=== PATIENT | female | born 1950 | race Caucasian/White ===

== ENCOUNTER → 2025-05-01 23:59 | Outpatient (BNV) | payer MEDICARE, SELFPAY | PROVIDERS: Visit Provider Internal Medicine Cardiovascular Disease | DX: I21.4 Non-ST elevation (NSTEMI) myocardial infarction (principal) | CPT/HCPCS: 92941; 92978; 93458; 99152 ==

== ENCOUNTER 2025-05-19 12:53 | Outpatient (AMB) | payer MEDICARE, SELFPAY ==
--- NOTE | 2025-05-19 13:05 | A.OFFVIS_ITS ---
Vital Signs 05/19/25 13:11 Height 5 ft 4 in Weight 138 lb 14.259 oz BMI 23.8 BP 124/60 Blood Pressure Location Rt brachial Position Sitting Pulse 61 Pulse Source Monitor Intake Visit Reasons: 2 week f/up cath Intake Note: 2wk f/up cath Radio Division Captain Required: No Accompanied by: Self / Same As Patient Allergies Penicillins Allergy (Severe, Verified 05/19/25 13:13) Rash Anesticia Allergy (Mild, Uncoded 05/19/25 13:13) Confusion Medication List - Last Reconciled 05/19/25 by Joel Moser MD aspirin (Adult Low Dose Aspirin) 81 mg PO DAILY atorvastatin (Lipitor) 80 mg PO DAILY carvedilol 3.125 mg PO BID cholecalciferol (vitamin D3) 50 mcg PO DAILY clopidogrel (Plavix) 75 mg PO DAILY meclizine 25 mg PO DAILY PRN nitroglycerin 0.4 mg sublingual Q5M PRN omeprazole 40 mg PO DAILY oxybutynin chloride ER 15 mg PO DAILY sucralfate 1 g PO QIDACHS HPI Comments Details: Pleasant 74-year-old lady from the [facility] who presented to [facility] after initial presentation add dora Marinelli with inferior ST-elevation TN. She was given thrombolytics and was transferred to [facility] for cardiac catheterization. 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 She had mild disease in the other vessels. She has been doing well since then. She has significant indigestion and GERD symptoms which go back many years. A presentation with TN was also like her GERD symptoms but she also had significant shortness of breath. Since PCI she has had 2 episodes of GERD which were short and were not accompanied with dyspnea. She is taking aspirin and Plavix. She is taking omeprazole and occasionally sucralfate. She has not started cardiac rehabilitation yet. She was taking rosuvastatin 10 mg and her LDL cholesterol was 94. [facility] Surgical History (Updated 05/19/25 @ 13:17 by Nata Stout CMA) Hx of cardiac cath Family History (Updated 05/19/25 @ 13:18 by Nata Stout CMA) Mother No problems noted. Social History (Updated 05/19/25 @ 13:18 by Nata Stout CMA) Patient Tobacco Use Status: Never used Tobacco Review of Systems Const Denies chills, Denies fatigue, Denies fever(s), Denies frequent falls, Denies weakness, Denies weight gain and Denies weight loss ENT Denies dizziness Card Denies chest pain, Denies leg edema, Denies lightheadedness, Denies palpitations, Denies dyspnea and Denies dyspnea on exertion Resp Denies cough, Denies dyspnea and Denies dyspnea on exertion GI Denies hematochezia Musc Denies abnormal gait, Denies muscle weakness, Denies numbness, Denies radiating pain into limb and Denies tingling Neuro Denies abnormal gait, Denies dizziness, Denies frequent falls, Denies numbness, Denies tingling and Denies weakness Endo Denies fatigue and Denies palpitations Physical Exam Vital Signs: Last Vital Signs Pulse 61 05/19/25 13:11 BP 124/60 05/19/25 13:11 BMI result Body Mass Index 23.8 GENERAL APPEARANCE: in no acute distress, pleasant. NECK: no carotid bruit, no jugular venous distention. SKIN: no suspicious lesions, warm and dry. HEART: no murmurs, regular rate and rhythm. LUNGS: clear to auscultation bilaterally. ABDOMEN: soft, nontender. EXTREMITIES: no edema. PERIPHERAL PULSES: equal. NEUROLOGIC: No gross deficits, AAO X 3 Office Procedures EKG Details: Sinus rhythm 61 beats per minute, normal axis, normal ECG, QTC 408 milliseconds. 30349-[id number], Complete Assessment & Plan Assessment & Plan (1) Myocardial infarction, inferior wall: Code(s): I21.19 - ST elevation (STEMI) myocardial infarction involving other coronary artery of inferior wall Category: Medical Plan Pleasant 74 year lady who had inferior wall TN and was given thrombolytics at [facility] and transferred to [facility] where cardiac catheterization showed plaque rupture in the right coronary artery which was treated with drug-eluting stent complicated by distal a dissection requiring a 2nd stent. She did well postprocedure and has been doing well. She is on aspirin and Plavix at this stage. Blood pressure well controlled. He had mild disease in the other vessels. LDL was elevated despite being on 10 mg of rosuvastatin. She is saying that her primary care physician was concerned about her elevated cholesterol for long time but she was resistant to starting statins. She recently started the rosuvastatin 10 mg. She will need repeat lipid panel before next visit. She is getting repeat blood workup in August 2025 through her primary care physician. Her LDL target is less than 55. If we can not achieve it with the atorvastatin then we will add ezetimibe 10 mg daily. Follow-up with us in few months. Thank you for allowing me to participate in the care of your patient. Please feel free to contact me if you have any questions. Orders: Orders Lipid Panel Today I21.19 - ST elevation (STEMI) myocardial infarction involving other coronary artery of inferior wall Medications: New clopidogrel (Plavix) 75 mg PO DAILY 90 tabs 3RF Coding Level of Care Code Est Pt Level 4 (08548) Diagnoses Myocardial infarction, inferior wall I21.19 CPT Codes EKG - CPT: 70883-[id number], Complete ([id number])
[2025-05-19 13:11] VITALS: BP 124/60; PULSE 61; BMI 23.8
--- OUTSIDE RECORDS SUMMARY | 2025-05-19 21:36 | XMS_ITS | Clinical Summary ---
Author Organization [facility] [place] [address] Care Team Providers Care Postmaster Relief Name Role Phone Ajay Cruz MD Primary Care Provider Allergies Active Allergy Reactions Criticality Noted Date Comments Anesthesia Tray 06/24/2016 Not allergic but senstive Penicillins Hives,Itching,Rash High 06/24/2016 [facility] Penicillin Allergy Risk Assessment 07/04/2024: Low risk penicillin allergy. OK to receive full dose of cefazolin, cefuroxime, or any 3rd or 4th+ generation cephalosporin. Medications oxybutynin (DITROPAN XL) 15 mg Tablet Extended Rel 24 hr Take 1 tablet by mouth daily. 0 04/12/2016 Active cholecalciferol , Vitamin D3, 1,000 unit Tablet Take 1,000 Units by mouth daily. Active nitrofurantoin (MACRODANTIN) 50 mg Capsule Take 50 mg by mouth as needed. Active meclizine (ANTIVERT) 25 mg Tablet Take 1 tablet by mouth 3 times daily as needed. 90 tablet 09/22/2016 Active rosuvastatin (Crestor) 10 mg tablet Take 1 tablet by mouth Daily at Noon. 01/18/2024 Active lactobacillus rhamnosus, GG, (CULTURELLE) 10 billion cell Capsule Take 1 capsule by mouth daily. Active melatonin 3 mg tablet Take 2 tablets by mouth nightly as needed (insomnia/sle ep). 08/14/2024 Active acetaminophen (Tylenol) 500 mg tablet Take 2 tablets by mouth every 8 hours. Continue the Tylenol around the clock for 10 days after surgery, (08/23/24). Then may take if needed per package insert. Do not take more than 3,000 mg of Tylenol in 24 hours. 08/14/2024 Active polyethylene glycoL (Miralax) 17 gram oral powder packet Take 17 g by mouth 2 times daily as needed (constipation ). 08/14/2024 Active sucralfate (Carafate) 1 gram tablet Take 1 tablet by mouth 3 times daily (before meals). 90 tablet 08/14/2024 Active ibuprofen (Advil) 200 mg tablet Take 2 tablets by mouth every 6 hours as needed for Pain. 08/14/2024 Active omeprazole (PriLOSEC) [address] capsule Take 1 capsule by mouth Daily at Noon. 08/29/2024 Active cephALEXin (Keflex) 500 mg tablet Take 4 tablets by mouth See Admin Instructions. 2,000 mg - 4 tablets one hours prior to dental appt 12 tablet 03/05/2025 Active Active Problems Problem Noted Date Diagnosed Date S/p R CHARLIE 08/12/24 (Dr. Wagner) 2024 Difficult airway 08/08/2017 Overview (08/08/2017): Patient is a Grade III view with direct laryngoscopy with Mac 3, Mac 4, and Hayden 2 blades. Easy FM, Grade II with glidescope. 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 07/26/2017 OA (osteoarthritis) 06/24/2016 Bladder incontinence 06/24/2016 Gastroesophageal reflux 06/24/2016 Encounters Date Type Department Care Team Description 03/05/2025 [place] [address] Maryana Wagner MD from Last 3 Months Family History Medical History Relation Comments Coronary Artery Disease Father Cancer Maternal Aunt Arthritis Mother Cancer Mother Cancer Sister Migraines Son 1 Asthma Son 2 Relation Status Comments Father Alive Maternal Aunt Mother Alive Paternal Grandfather Alive Sister Alive Son 1 Son 2 Social History Tobacco Use Types Packs/Day Years Used Date Smoking Tobacco: Never Smokeless Tobacco: Never Alcohol Use Standard Drinks/Week Comments No 0 (1 standard drink = 0.6 oz pur e alcohol) [facility] Utilities Answer Date Recorded In the past 12 months has th e electric, gas, oil, or water company threatened to shut off services in your home? No 08/14/2024 Hunger Vital Sign Answer Date Recorded Within the past 12 months, y ou worried that your food would run out before you got the money to buy more. Never true 08/15/19 25 Within the past 12 months, t he food you bought just didn't last and you didn't have money to get more. Never true 08/14/2024 PRAPARE - Transportation Answer Date Re corded In the past 12 months, has l ack of transportation kept you from medical appointments or from getting medications? No 10/2024 In the past 12 months, has l ack of transportation kept you from meetings, work, or from getting things needed for daily living? No 08/14/2024 Housing Stability Vital Sign Answer Arthur e Recorded In the last 12 months, was t here a time when you were not able to pay the mortgage or rent on time? No 08/14/2024 In the past 12 months, how m any times have you moved where you were living? 0 08/14/2024 At any time in the past 12 m [facility], were you homeless or living in a chcf (including now)? No 08/14/2024 DH IPV Inpatient Questions Answer Date Recorded Does Anyone Try to Keep You From Having Contact with Others or Doing Things Outside Your Home? 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 file Not on file Not on file Last Filed Vital Signs Vital Sign Reading Time Taken Comments Blood Pressure 121/70 10/09/2024 1:01 PM EDT Pulse 72 10/09/2024 1:01 PM EDT Temperature 36.8 C (98.2 F) 10/09/2024 1:01 PM EDT Respiratory Rate 16 08/14/2024 3:25 AM EST Oxygen Saturation 99% 10/09/2024 1:01 PM EDT Inhaled Oxygen Concentration - - Weight 62.6 kg (138 lb) 02/12/2025 11:13 AM EDT Height 162.6 cm (5' 4 ) 02/12/2025 11:13 AM EDT Body Mass Index 23.69 02/12/2025 11:13 AM EDT Plan of Treatment Health Maintenance Due Date Last Done Comments Hepatitis C Screening 1968 Tetanus/Diphtheria/Pertussis Vaccines (1 - Tdap) 08/12 Pneumoccocal Vaccine: 50+ (1 of 1 - PCV) 1998 Zoster vaccine (1 of 2) 1998 Advance Directive 08/13/2003 Bone Density Scan 2013 RSV Vaccine (1 - 1-dose 75+ series) 08/13/2023 Covid-19 Vaccine (1 - season) 2025 Influenza (Flu) vaccine (1 o f 1 - Influenza standard series) 02/10/2025 Medical Devices Implanted Type Area Digital Marketing Analyst Device Identifier Shelf Expiration Date Model / Serial / Lot Cement Bone Medium Viscosity Polymethyl Methacrylate ([id number]) - [id number] Implanted:Qty: 1 on 2024 by Maryana Wagner MD at [facility] IMPLANTS Right: Hip [employer] [place] [id number] 07/12/2026 [id number] / / [id number] Shell Acet Hip 50mm Por Ctd 3 Hole Ti Emphasys (7619120) (Autoreq) - [id number] Implanted:Qty: 1 on 2024 by Maryana Wagner MD at [facility] IMPLANTS Right: Acetabulum [facility] [place]NOTE 3[facility] - [facility] [id number] 06/11/2034 4710-50- 300 / / [id number] Liner Acet Hip 09p72vr Stnd Poly Emphasys A[employer] (7509023) (Autoreq) - [id number] Implanted:Qty: 1 on 2024 by Maryana Wagner MD at [facility] IMPLANTS Right: Acetabulum [employer] [facility] [place] [id number] 06/11/2029 4722-50- 036 / / [id number] Spacer Stem Hip 10mm Distal Cemented Pmma C Stem (0239545) (Autoreq) - [id number] Implanted:Qty: 1 on 2024 by Maryana Wagner MD at [facility] IMPLANTS Right: Hip [employer] [facility] [employer] [place] [id number] 05/11/2029 9612-10- 500 / / [id number] Head Femoral Hip 36mm +1.5mm Offset 04/24 Taper Ceramic (3091435) (Autoreq) - [id number] Implanted:Qty: 1 on 2024 by Maryana Wagner MD at [facility] IMPLANTS Right: Hip [employer] [facility] [employer] [place] [id number] 05/11/2029 1365-36- 310 / / [id number] Stem Femoral Hip 115.0mm Sz [address] St[address] Ofst Ti C Stem Amt ([id number]) - [id number] Implanted:Qty: 1 on 2024 by Maryana Wagner MD at [facility] IMPLANTS Right: Hip [employer] [facility] [employer] [place] [id number] 05/11/2029 1570-04- 090 / / [id number] Restrictor Hip 10-16mm Cement Poly ([id number]) (Autoreq) - [id number] Implanted:Qty: 1 on 2024 by Maryana Wagner MD at [facility] IMPLANTS Right: Hip [facility] [place] [id number] 08/09/2028 5461-10- 000 / / [id number] [place] [id number] [facility] Advance Directives Documents on File Type Date Recorded Patient Manager Merchandising Expl anation Personal Manager Merchandising 07/04/2024 4:05 PM Personal Manager Merchandising 07/04/2024 4:05 PM * Attempt Cardiopulmonary Resuscitation - Inpatient (Latest Code Status on File) Date Activated Date Inactivated Comments 2024 1:54 PM 08/14/2024 3:22 PM Question Answer Comments Code Status decision made by: Patient * Full Code Date Activated Date Inactivated Comments 08/08/2017 12:02 PM 08/08/2017 8:23 PM Question Answer Comments Does patient have capacity to make decision: Yes Care Teams Postmaster Relief Relationship Specialty Start Date End Date Ajay Cruz MD [address] [place] [address] [place] [id number] PCP - General Internal Medicine 12/05/19
== END 2025-05-19 13:50 | disposition home or self-care (01) ==
LOC: HO.HCS 12:53
PROVIDERS: Visit Provider Internal Medicine Cardiovascular Disease
DX: I21.19 ST elevation (STEMI) myocardial infarction involving other coronary artery of inferior wall (principal)
CPT/HCPCS: 93010; 99214

== ENCOUNTER → 2025-05-19 12:53 | Outpatient (BNVA) | payer MEDICARE, SELFPAY | PROVIDERS: Visit Provider Internal Medicine Cardiovascular Disease | DX: I21.19 ST elevation (STEMI) myocardial infarction involving other coronary artery of inferior wall (principal) | CPT/HCPCS: 93005; 99212 ==